=== PATIENT | female | born 1955 | race Caucasian/White ===

== ENCOUNTER 2019-07-31 14:31 | Observation (INO) ==
[2019-07-31] MEDS ORDERED: *HR* HYDROmorphone 2 MG/ML SYRINGE IVP ONE (15:53)
[2019-07-31] MEDS ORDERED: Ondansetron 4 MG/2 ML VIAL ONE ×2 (16:31→16:54)
[2019-07-31] MEDS ORDERED: *HR* Midazolam HCl 2 MG/2 ML VIAL ONE (16:54)
[2019-07-31] MEDS ORDERED: *HR* FentaNYL (PF) 100 MCG/2 ML VIAL ONE (16:54)
[2019-07-31] MEDS ORDERED: Dexamethasone 4 MG/ML VIAL ONE ×2 (16:54→18:52)
[2019-07-31] MEDS ORDERED: Lidocaine -MPF 2% 2 ML VIAL ONE (16:54)
[2019-07-31] MEDS ORDERED: *HR* Propofol 200 MG/20 ML VIAL IVP ONE ×2 (16:54→20:41)
[2019-07-31] MEDS ORDERED: Ondansetron 4 MG/2 ML VIAL IVP ONE ×2 (16:57→19:47)
[2019-07-31] MEDS ORDERED: Famotidine 20 MG/2 ML VIAL ONE (17:25)
[2019-07-31] MEDS ORDERED: Ropivacaine/PF 0.5% 30 ML VIAL ONE (17:25)
[2019-07-31] MEDS ORDERED: *HR* OxyCODONE Immed Rel 5 MG TABLET PO PRN (19:47)
[2019-07-31] MEDS ORDERED: *HR* Promethazine 25 MG/ML VIAL IVP PRN (19:47)
[2019-07-31] MEDS ORDERED: Ketorolac 30 MG/ML VIAL ONE (22:09)
[2019-07-31] MEDS ORDERED: Temazepam 15 MG CAPSULE PO PRN (23:07)
[2019-07-31] MEDS ORDERED: *HR* OxyCODONE/APAP 5/325 TABLET PO PRN (23:07)
[2019-07-31] MEDS: Ondansetron 4 MG/2 ML VIAL IVP PRN (23:32)
[2019-08-01] MEDS: *HR* Enoxaparin 40 MG/0.4 ML SYRINGE SQ SCH (05:58)
[2019-08-01] MEDS ORDERED: tiZANidine 4 MG TABLET PO PRN (11:30)
[2019-08-01] MEDS ORDERED: HYDROcodone BIT/Homatropine 5 MG TABLET PO PRN (11:30)
[2019-08-01] MEDS: Ondansetron 4 MG/2 ML VIAL IVP PRN (12:35)
[2019-08-01] MEDS: *HR* OxyCODONE Immed Rel 5 MG TABLET PO PRN ×2 (12:36→18:37)
[2019-08-01] MEDS: Acetaminophen 325 MG TABLET PO SCH ×2 (12:36→18:22)
[2019-08-01] MEDS: cephALEXin 500 MG CAPSULE PO SCH (21:58)
[2019-08-02] MEDS: *HR* OxyCODONE Immed Rel 5 MG TABLET PO PRN ×2 (02:49→12:45)
[2019-08-02] MEDS: Acetaminophen 325 MG TABLET PO SCH ×3 (02:49→12:45)
[2019-08-02] MEDS: *HR* Enoxaparin 40 MG/0.4 ML SYRINGE SQ SCH (06:18)
[2019-08-02 08:22] LABS: Basophils % 0.2 %; Eosinophils # 0.1 K/mcL (0.0-0.6); Eosinophils % 1.5 %; Hematocrit 39.3 % (35.3-44.9); Hemoglobin 12.3 g/dL (11.5-15.4); Immature Granulocytes % 0.2 % (0-4); Lymphocytes # 2.2 K/mcL (0.6-4.6); Lymphocytes % 27.6 %; Mean Corpuscular HGB Conc 31.3 g/dL (31.6-35.5); Mean Corpuscular Hemoglobin 30.4 pg (28.0-33.3); Mean Platelet Volume 9.8 fL (9.4-12.4); Monocytes # 0.6 K/mcL (0.0-1.3); Monocytes % 7.1 %; Neutrophils # 5.1 K/mcL (1.6-8.9); Platelet Count 290 K/mcL (140-400); Red Blood Count 4.05 M/mcL (3.82-4.97); Red Cell Distribution Width 14.2 % (11.5-14.5); Segmented Neutrophils % 63.4 %
[2019-08-02 08:38] LABS: BUN/Creatinine Ratio 23 (6-26); Blood Urea Nitrogen 15 mg/dL (8-23); Calcium 8.5 mg/dL (8.6-10.3); Carbon Dioxide 27 mEq/L (23-29); Chloride 106 mEq/L (98-107); Glucose 90 mg/dL (70-105); Osmolality,Calculated 292 (280-300); Potassium 3.9 mEq/L (3.5-5.1); Sodium 141 mEq/L (136-145); eGFR For African Americans > 60 (> 60); eGFR For Non-African Americans > 60 (> 60)
[2019-08-02 08:53] LABS: Estimated Average Glucose 134 mg/dl
[2019-08-02] MEDS: cephALEXin 500 MG CAPSULE PO SCH (09:18)
[2019-08-02] MEDS ORDERED: FLU Vac QV 19-20 (6Month+)/PF 0.5 ML SYRINGE IM ONE (13:51)
[2019-08-02] MEDS ORDERED: Ondansetron ODT 4 MG TAB.RAPDIS SL ONE (14:31)
[2019-08-02 14:34] VITALS: BP 125/86
== END 2019-08-02 15:00 | disposition home or self-care (01) ==
LOC: 3NENU
PROVIDERS: ADMIT Orthopaedic Surgery Hand Surgery; ATTEND Orthopaedic Surgery Hand Surgery